=== PATIENT | female | born 1985 | race Caucasian/White ===

== ENCOUNTER 2016-10-30 11:40 | Emergency (ER) | payer OTHER ==
[2016-10-30 11:46] VITALS: BP 155/99; PULSE 76; RESP 18; O2SAT 100
--- NOTE | 2016-10-30 12:06 | ED.REPORT ---
HPI-Abd Pain F Under 41 Date of Service Oct 30, 2016 ED Provider: Dr. Yeung 31 y/o female with a hx of medullary sponge kidney and cholelithiasis presents to the ED complaining of urinary frequency and urgency, onset 5 days ago. The pt went to an urgent care clinic and was diagnosed with a UTI at the [facility]. She finished her Ciprofloxacin yesterday, which has not resolved her sx. Associated sx include mild hematuria, nausea, mild flank pain and malaise. She states "I feel like I have the flu". She denies subjective fever, cough, vomiting and dysuria.She has had kidney infections before and reports that these sx are somewhat similar to her previous sx. She had a hysterectomy 8 weeks ago and states the surgical site has been healing well. Nursing Notes Stated Complaint: POSS KIDNEY INFECTION Chief Complaint: Female Abdominal Pain Nursing Notes Reviewed: Yes Allergies: Coded Allergies: Sulfa (Sulfonamide Antibiotics) (Verified Allergy, Unknown, 10/30/16) latex (Verified Allergy, Unknown, 10/30/16) meperidine (Verified Allergy, Unknown, 10/30/16) General Time Seen by MD: 12:05 Chief Complaint Other (frequent urination) Hx Obtained From: Patient Arrived By: Walk-in Sudden in Onset?: Yes Onset Occurred: 5 days ago Symptom Duration: Since onset Location: : Flank left: Flank right Quality: Painful Severity: Current: Mild Severity: Maximum: Mild Recent Healthcare: Recent doctor visit Similar Sx Previous: Yes Past Medical History Past Medical History medullary sponge kidney choleothiasis Past Surgical History Reports: Hysterectomy Smoking History Unknown if Ever Smoker Social History Other Social History: Good social support Ambulatory Status Independent Review of Systems Constitutional: Denies: Fever Respiratory: Denies: Non-productive cough GI: Reports: Nausea, Denies: Vomiting Female: Reports: Hematuria (little), Urinary frequency, Urinary urgency, Denies: Dysuria Musculoskeletal: Reports: Back pain (mild) Complete sys rev & neg: except as marked. Physical Exam Initial Vital Signs Vital Signs (First) Date Time Temp Pulse Resp B/P Pulse Ox O2 Delivery O2 Flow Rate FiO2 10/30/16 11:46 36.7 76 18 155/99 100 Room Air Initial VS: Reviewed, Vital signs normal Head / Eyes: Atraumatic, Normocephalic Neck: Supple, Non-tender, Full range of motion Extremities: Vascular intact, Neuro intact, No swelling, No tenderness Skin: Warm, Dry, No cyanosis Neurologic: Alert, Oriented, Nonfocal General/Constitutional: Awake, Alert, No acute distress, Well appearing, Cooperative Respiratory / Chest: Atraumatic, Breath sounds NL, Breath sounds = bilat, No respiratory distress, No rales, No rhonchi, No wheezing Cardiovascular: Heart rate NL, Regular rhythm, Heart sounds NL, No gallop, No murmurs, No rubs Abdomen: Atraumatic, Soft, Non-tender, No guarding, No rebound Back: Atraumatic, Full range of motion Mild CVA tenderness Interpretation & Diagnostics PROCEDURE: US RENAL SONOGRAM IMPRESSION: 1. No evidence hydronephrosis. 2. Bilateral increased echogenicity within the renal medulla consistent with medullary nephrocalcinosis. Findings are compatible with patient's reported history of medullary sponge kidney. Dictated by: Bong Emmanuel M.D. on 10/30/2016 at 13:54 Approved by: Bong Emmanuel M.D. on 10/30/2016 at 13:57 Lab Results Interpretation Result Diagram: 10/30/16 1250 10/30/16 1250 Test 10/30/16 12:12 10/30/16 12:50 10/30/16 13:00 Urine Color Yellow (YELLOW) Urine Appearance Clear (CLEAR,HAZY) Urine pH 6.5 (5.0-8.0) Urine Specific [place] 1.005 (1.003-1.035) Urine Protein Negativemg/dL (NEG,TRACE) Urine Glucose (UA) Negativemg/dL (NEGATIVE) Urine Ketones Negativemg/dL (NEGATIVE) Urine Occult Blood Trace (NEGATIVE) Urine Nitrite Negative (NEGATIVE) Urine Bilirubin Negative (NEGATIVE) Urine Urobilinogen Normalmg/dL (NORMAL) Urine Leukocyte Esterase Negative (NEGATIVE) Urine RBC 3-10/hpf (0-2) Urine WBC 0-5/hpf (0-5) Urine Epithelial Cells Occasional/hpf (NONE-MOD) Urine Crystals None seen (NONE SEEN) Urine Bacteria Few/hpf (NONE-FEW) Urine Hyaline Casts None/lpf (NONE) Urine Granular Casts None seen (NONE SEEN) Urine Waxy Casts None seen (NONE SEEN) Urine Red Blood Cell Casts None seen (NONE SEEN) Urine White Blood Cell Casts None seen (NONE SEEN) Urine Mucus None seen (None Seen) Urine Trichomonas None seen (NONE SEEN) Urine Yeast None (NONE SEEN) Urinalysis Comment None Urine Culture Reflexed Not indicated Hold Urine Received (Received) White Blood Count 6.5th/mm3 (3.8-10.1) Red Blood Count 5.03mil/mm3 (3.90-5.20) Hemoglobin 14.6g/dL (12.0-15.6) Hematocrit 44.9% (35.0-46.0) Mean Corpuscular Volume 89.3fL (81-100) Mean Corpuscular Hemoglobin 29.0pg (27.0-35.0) Mean Corpuscular Hemoglobin Concent 32.5% (32.0-37.0) Red Cell Distribution Width 13.0% (12.3-15.4) Platelet Count 193bil/L (150-400) Neutrophils (%) (Auto) 66.6% (40-74) Lymphocytes (%) (Auto) 25.0% (14-46) Monocytes (%) (Auto) 6.5% (4-12) Eosinophils (%) (Auto) 1.2% (0-5) Basophils (%) (Auto) 0.5% (0-3) Sodium Level 139mEq/L (134-144) Potassium Level 3.9mEq/L (3.5-5.2) Chloride Level 104mEq/L (97-108) Carbon Dioxide Level 24mmol/L (18-29) Blood Urea Nitrogen 16mg/dL (6-20) Creatinine 0.60mg/dL (0.57-1.00) Estimat Glomerular Filtration Rate 168mL/min (>59) Glucose Level 124mg/dL (60-99) Calcium Level 9.8mg/dL (8.5-10.1) Magnesium Level 2.0mg/dL (1.6-2.6) Total Bilirubin 0.3mg/dL (0.0-1.2) Aspartate Amino Transf (AST/SGOT) 18U/L (0-50) Alanine Aminotransferase (ALT/SGPT) 17U/L (0-32) Alkaline Phosphatase 57U/L (25-150) Total Protein 7.5g/dL (6.4-8.4) Albumin 4.6g/dL (3.4-5.0) Re-Eval/Medical Decision Med Decision/Clinical Course This woman has some higher than average risk for complications related to urinary tract infection given her medullary sponge kidney history as well as her history of kidney stones. She believes that her symptoms are most consistent with urinary tract infection and possible kidney infection. She has not documented a fever but does feel general malaise and some flank achiness. She says that despite the fact that she has completed her ciprofloxacin yesterday morning, she continues to feel symptomatic with significant urgency and frequency and some degree of dysuria. I obtained an ultrasound today to make sure that she had no evidence of hydronephrosis or ureteral blockage. I also checked blood work to make sure there is no systemic signs of infection or renal failure. Urinalysis today is negative or minimally abnormal but not terribly reassuring in the face of recent antibiotics. I have made her appointment to see Yamile Laguna tomorrow at 220 in the afternoon at [facility] to redo her urinalysis. Urinalysis obtained tomorrow will likely be much more diagnostic especially in terms of a repeat culture. I recommend copious oral hydration, Tylenol and/or ibuprofen as needed for symptom management as well as pure cranberry to help eradicate any further infection. I think this is more advisable then repeat doses of antibiotics. I do have the sensitivity results from the [facility] dated October 24 which shows that her Enterobacter infection was indeed sensitive to ciprofloxacin Source of Hx: Old records Re-Evaluation/Progress : Time of Eval: 13:54 Patient Status: Condition improved Re-Evaluation/Progress Note: Rechecked pt. Discussed lab results, imaging results, diagnosis and plan to discharge. Pt understands and agrees with the plan. F/U instructions and RTER warning given. All questions addressed. Counseled Regarding: Diagnosis, Lab results, Need for follow-up, When/why to return to ED Discharge & Departure Primary Impression: Hematuria Additional Impressions: Flank pain Dysuria Disposition: Home Discharge Condition All VS Reviewed: Yes Condition: Stable Patient Instructions: Urinary Tract Infection in Women (ED) Additional Instructions: No evidence of serious infection at this time. I am, however, concerned about your continued symptoms and therefore believe it is important for follow-up tomorrow. This has been arranged at [facility] with Yamile Laguna at 220 in the afternoon. Please arrive early. Please bring with you the sensitivity report we obtained today. I recommended copious oral hydration , Tylenol and/or ibuprofen as needed for pain as well as cranberry and Pyridium. Follow-up right away for severe illness, vomiting, high fever, pain not controllable with the above treatments. Referrals: [facility] (PCP) [facility] Scribe Attestation Portions of this note were transcribed by Michael Borjas. I, , personally performed the history, physical exam and medical decision-making;I reviewed and confirmed the accuracy of the information in the transcribed note. Signed by Fermni Lal. 10/30/16 14:16 copies to: [facility] Aníbal Yeung MD Oct 30, 2016 12:06 Michael Borjas Oct 30, 2016 12:14
[2016-10-30 13:01] LABS: APPEARANCE,URINE CLEAR (CLEAR,HAZY); COLOR,URINE YELLOW (YELLOW); OCCULT BLOOD,URINE TRACE (NEGATIVE); PH,URINE 6.5 (5.0-8.0); UROBILINOGEN,URINE NORMAL (NORMAL)
[2016-10-30 13:05] LABS: BASOPHILS % (AUTO) 0.5 % (0-3); EOSINOPHILS % (AUTO) 1.2 % (0-5); MONOCYTES % (AUTO) 6.5 % (4-12); Mean Corpuscular Volume 89.3 fL (81-100); NEUTROPHILS % (AUTO) 66.6 % (40-74); Platelet Count 193 bil/L (150-400)
--- NOTE | 2016-10-30 13:59 | DRSVH ---
PROCEDURE: US RENAL SONOGRAM INDICATIONS: Flank pain TECHNIQUE: Real-time scanning was performed of the kidneys and bladder, with image documentation. COMPARISON: None. FINDINGS: Kidneys: Right kidney measures 13.1 cm long; left kidney measures 13.7 cm long. Right renal cortica l thickness is 0.6 cm; left renal cortical thickness is 1.0 cm. There is bilateral increased echogen icity within the renal medulla. Bladder: Pre-void bladder volume is 36 mL. No postvoid residual volume. Pre-void images demonstrat e no intraluminal masses or stones. On pre-void images, bilateral ureteral jets are noted with color Doppler interrogation. (Of note, ureteral jets may not be detectable in up to 25% of cases due to i nsufficient differences in specific gravity between ureteral and bladder urine). Miscellaneous: No free pelvic fluid. IMPRESSION: 1. No evidence hydronephrosis. 2. Bilateral increased echogenicity within the renal medulla consistent with medullary nephrocalcino sis. Findings are compatible with patient's reported history of medullary sponge kidney. Dictated by: Bong Emmanuel M.D. on 10/30/2016 at 13:54 Approved by: Bong Emmanuel M.D. on 10/30/2016 at 13:57
== END 2016-10-30 14:18 | disposition home or self-care (01) ==
LOC: SED 11:40
DX: R31.9 Hematuria, unspecified (principal); R10.30 Lower abdominal pain, unspecified; R30.0 Dysuria; R11.0 Nausea; R53.81 Other malaise; Q61.5 Medullary cystic kidney; Z87.19 Personal history of other diseases of the digestive system; Z87.440 Personal history of urinary (tract) infections; Z90.710 Acquired absence of both cervix and uterus; Z87.442 Personal history of urinary calculi; Z88.2 Allergy status to sulfonamides; Z88.5 Allergy status to narcotic agent